=== PATIENT | male | born 1985 | race Caucasian/White ===

== ENCOUNTER 2020-10-08 20:58 | Inpatient (IN) | payer BC, OTHER ==
[~2020-10-08] VITALS: Ht 160 cm; Wt 83.7 kg
--- NOTE | 2020-10-08 21:03 | NUR ---
Pt BIB [facility] c/o overdose on marijuana. Pt is A/O x4, no SOB or labored breathing, afebrile. Stated that the symptoms started an hour [facility]. Has Hx of taking marijuana. Denies CP/pressure. Noted with nausea. Clear speech, complete sentences.
--- NOTE | 2020-10-08 21:05 | NUR ---
Dr. Sheridan at bedside, MSE in progress.
[2020-10-08] MEDS ORDERED: losartan PO (21:08)
[2020-10-08] MEDS ORDERED: ONDANSETRON 4 MG/2 ML VIAL ONE (21:14)
[2020-10-08] MEDS ORDERED: LORAZEPAM 2 MG/1 ML VIAL IV ONE ×2 (21:15→23:00)
[2020-10-08] MEDS ORDERED: ONDANSETRON 4 MG/2 ML VIAL IV ONE (21:15)
[2020-10-08] MEDS ORDERED: LORAZEPAM 2 MG/1 ML VIAL ONE ×2 (21:15→23:10)
[2020-10-08 21:25] LABS: HEMATOCRIT 47.5 % (36.7-47.1); MEAN CORPUSCULAR HEMOGLOBIN 31.4 uug (23.8-33.4); MEAN CORPUSCULAR VOLUME 90.1 fL (73.0-96.2); PLATELET COUNT (AUTO) 241 K/uL (152-348)
[2020-10-08 21:28] LABS: CREATININE 1.2 mg/dL (0.6-1.3)
[2020-10-08 21:33] LABS: POTASSIUM 2.4 mmol/L (3.5-5.1)
[2020-10-08] MEDS ORDERED: POTASSIUM CHLORIDE 20 MEQ TAB.PRT.SR PO ONE ×2 (21:45→23:00)
[2020-10-08] MEDS ORDERED: IV NORMAL SALINE 1000 ML BAG IV ONE (21:45)
[2020-10-08] MEDS ORDERED: POTASSIUM CHLORIDE 50 ML IV SCH (21:45)
[2020-10-08 21:55] LABS: BILIRUBIN,DIRECT 0.2 mg/dL (0.0-0.2); MAGNESIUM 2.1 mg/dL (1.8-2.4)
[2020-10-08] MEDS ORDERED: POTASSIUM CHLORIDE 50 ML ONE (21:55)
[2020-10-08] MEDS ORDERED: POTASSIUM CHLORIDE 20 MEQ TAB.PRT.SR ONE ×2 (21:55→23:07)
[2020-10-08 22:16] LABS: THYROID STIMULATING HORMONE 0.68 mIU/mL (0.358-3.740)
--- NOTE | 2020-10-09 00:11 | NUR ---
Called [facility] [place] paged.
--- NOTE | 2020-10-09 00:25 | NUR ---
gave report to tele nurse Kevin CAMERON.
[2020-10-09] MEDS ORDERED: ONDANSETRON 4 MG/2 ML VIAL IV PRN (00:45)
[2020-10-09] MEDS ORDERED: Z GUARD REMEDY PASTE 57 GM TUBE TOP PRN (00:45)
[2020-10-09] MEDS ORDERED: MAGNESIUM HYDROXIDE 30 ML LIQUID UDC PO PRN (00:45)
[2020-10-09] MEDS ORDERED: ACETAMINOPHEN 325 MG TABLET PO PRN (00:45)
[2020-10-09 01:40] VITALS: BP 128/80
--- NOTE | 2020-10-09 01:40 | NUR ---
ADMITTED VIA W/C. ORIENTED TO SURROUNDINGS. VERBALIZED UNDERSTANDING. VOIDING QS.
[2020-10-09 01:49] LABS: CREATININE 1.1 mg/dL (0.6-1.3); POTASSIUM 3.6 mmol/L (3.5-5.1)
--- NOTE | 2020-10-09 01:50 | NUR ---
Pt. admitted to tele , under care of [employer]EL TR[employer] DRIVER Toyin Benavides Dx: hypokalemia [place]ongs List completed
[2020-10-09 01:54] LABS: BILIRUBIN,DIRECT 0.2 mg/dL (0.0-0.2); BILIRUBIN,TOTAL 0.7 mg/dL (0.2-1.0); PHOSPHOROUS 1.8 mg/dL (2.5-4.9); TOTAL PROTEIN, SERUM 6.4 g/dL (6.4-8.2)
[2020-10-09 02:02] LABS: THYROID STIMULATING HORMONE 0.566 mIU/mL (0.358-3.740)
[2020-10-09] MEDS: IV NS 1000 ML 1,000 ML IV PRN ×2 (03:47→14:36)
[2020-10-09 04:12] VITALS: BP 122/65
[2020-10-09] MEDS ORDERED: LOSA50TA3 PO (05:59)
--- NOTE | 2020-10-09 06:00 | NUR ---
DOZING AT INTERVALS. NO NAUSEA AND VOMITING THIS SHIFT.
[2020-10-09 06:50] LABS: HEMATOCRIT 42.6 % (36.7-47.1); MEAN CORPUSCULAR HEMOGLOBIN 31.4 uug (23.8-33.4); MEAN CORPUSCULAR VOLUME 90.5 fL (73.0-96.2); PLATELET COUNT (AUTO) 210 K/uL (152-348)
[2020-10-09] MEDS ORDERED: PANTOPRAZOLE SODIUM 40 MG TABLET.DR PO SCH (07:00)
--- NOTE | 2020-10-09 07:00 | NUR ---
RECEIVED IN BED A/O X4. ON 2 LPM NC. NO SOB. DENIES PAIN, NAUSEA OR VOMITING. IV HYDRATION ONGOING AND TOLERATED. STATED HE DIDN'T SLEEP WELL DUE TO FEELING LIKE HE'S FLOATING WHEN HE CLOSES HIS EYES. WANTS TO REST SOME MORE. PATIENT IS COMFORTABLE. WILL CONTINUE TO MONITOR.
[2020-10-09 11:58] VITALS: BP 120/76
[2020-10-09] MEDS ORDERED: NEUTRA PHOS PACKET PO ONE (15:15)
[2020-10-09 15:32] VITALS: BP 136/82
--- NOTE | 2020-10-09 17:46 | NUR ---
Removed IV access. Patient said no one able to pick him up. He will call [employer].
--- NOTE | 2020-10-09 17:56 | NUR ---
PATIENT DISCHARGED TO HOME STABLE. ALERT AND ORIENTED X4. AMBULATORY. NO SOB. DENIES PAIN, NAUSEA, VOMITING OR DIARRHEA. PICKED UP BY [employer] WORKER.
== END 2020-10-09 17:55 | disposition home or self-care (01) | DRG 641 ==
LOC: ER 21:00 → TELE3 23:55
PROVIDERS: ADMIT Student in an Organized Health Care Education/Training Program; ATTEND Student in an Organized Health Care Education/Training Program
DX: E87.6 Hypokalemia (principal); R11.2 Nausea with vomiting, unspecified; R74.01 Elevation of levels of liver transaminase levels; I10 Essential (primary) hypertension; Z20.822 Contact with and (suspected) exposure to COVID-19
CPT/HCPCS: 36415; 70030-TC; 83735; 84100; 84443; 85025; 93005; A4663; G0378; J2060; J2405; J3480; J7030